=== PATIENT | male | born 1960 | race Caucasian/White ===

== ENCOUNTER → 2018-01-11 | Outpatient (CLI) | payer OTHER ==
[~2018-01-11] VITALS: Ht 177.8 cm; Wt 145.1 kg
[~2018-01-11] MED LIST: ACTOS 45 MG45 M1 PO; ADULT LOW DOSE81 MG PO; GLUCOVANCE 5-51 EACH PO; HUMALOG100 UNIT/1; HYDROCHLOROTHIA25 M1; LANTUS; LIPITOR40 MG PO; LISINOPRIL40 MG PO; OMEGA-31000 MG PO; THERA M PLUS T1 EAC2 PO; ZETIA10 MG PO
--- NOTE | ~2018-01-11 | EKG ---
[address] [address] ELECTROCARDIOGRAM REPORT Name: ROGER CLIFFORD Room #: REG [employer]#: [id number] Admission: 01/11/18 Attend Phys: Colin Lowry MD, Discharge: Date of : 56 Report #: [id number] THIS REPORT FOR: //name// [facility] Test Date: 2018-01-11 Test Time: 07:10:59 Pat Name: ROGER CLIFFORD Department: Room: Gender: M Director Retirement: Beatrice BRIDGES : 1960 Requested By: Colin Lowry Order Number: [id number] MD: Zaid Salazar Measurements Intervals [place] Rate: 76 P: 52 AK: 207 QRS: -19 QRSD: 98 T: 50 QT: 405 QTc: 456 Interpretive Statements Sinus rhythm Atrial premature complex Borderline prolonged AK interval Borderline left axis deviation Early R-wave progression Compared to ECG 07/28/2010 08:39:15 Atrial premature complex(es) now present Electronically Signed On 01-11-2018 8:17:44 CDT by Zaid Salazar [email or web address] <ELECTRONICALLY SIGNED> By: Zaid Salazar MD, [facility] 01/11/18 0817 0710 0710 Zaid Salazar MD, [facility] /EPI
--- NOTE | ~2018-01-11 | CATHLAB ---
[facility] [address] [place] [address] INVASIVE PROCEDURE REPORT Name: ROGER CLIFFORD Room #: REG Cyril#: [id number] Admission: 01/11/18 Attend Phys: Colin Lowry MD Discharge: Date of : 56 Date of Service: 01/11/18 1648 Report #: [id number] THIS REPORT FOR: //name// APPROVED REPORT Study performed: 01/11/2018 08:09:23 Patient Details Patient Status: Out-Patient Room #: The patient is a 57 year-old male Event Personnel Colin Lowry All Around Patternmaker, Eden Abbasi RTR, BOARD CERTIFIED MUSIC THERAPIST Monitor, Luis Turner RN, Colin Covarrubias Scrub Procedures Performed Left Heart Cath w/or w/o Coronaries [id number] [facility] Art Access - R radial artery Indication Positive stress test Risk Factors Hypertension, Diabetes Admission/Lab Medications/Medications given during procedure Heparin Unfract. Procedure Narrative The patient was brought electively to the Cardiac Catheterization Laboratory and was prepped and draped in a sterile manner. The Right Wrist^ was infiltrated with 1% Lidocaine subcutaneous anesthesia. A TRANSRADIAL SLENDER 6F GLIDESTrueViewTH KIT #[id number] sheath was inserted into the Right Radial Artery^. Coronary angiography was performed using coronary diagnostic catheters. The right coronary system was accessed and visualized with a JR4 catheter. The left coronary system was accessed and visualized with a JL3.5 catheter. The left ventricle was accessed and visualized with a PIGTAIL catheter. Left ventricular/Aortic Valve gradient assessed via catheter pullback. Left ventriculogram was performed in 30 degree projection. Closure device was deployed with a 6 Fr VASC BAND XL 29CM #[id number]. The patient tolerated the procedure well and there were no complications associated with the procedure. There was no hematoma. Intraoperative Conscious Sedation [facility] [address] [place] [address] INVASIVE PROCEDURE REPORT Name: ROGER CLIFFORD Room #: [facility] [id number] Admission: 01/11/18 Attend Phys: Colin Lowry MD Discharge: Date of : 56 Date of Service: 01/11/18 1648 Report #: [id number] Sedation start time: 8.24 Case end Time: 8.50 Fentanyl 25 mcg Versed 2 mg Fluoro Time: 6.40 minutes Dose: DAP 68491.00 cGycm2 1343 mGy Contrast Type and Amount: Omnipaque 145 ml Coronary Angiography The patient's coronary anatomy is right dominant. [place] Artery Percent Stenosis Left Main: 0 % Prox LAD: 0 % Mid/Distal LAD: 30 % Circumflex: 0 % RCA: 30 % Ramus: % Left Ventriculography The left ventricle is normal in size with normal contractility. The left ventricular ejection fraction is estimated to be 60-65%. Left ventricular wall motion abnormalities are not present. There is no mitral insufficiency. Hemodynamics The aortic pressure is 129/76 mmHg with a mean of 97 mmHg. The left ventricular pressure is 134/19 mmHg with a mean of mmHg. The left ventricular end diastolic pressure is 25 mmHg. There was no gradient across the aortic valve upon pullback. Pullback from the left ventricle to the aorta revealed no gradient across the aortic valve. Conclusion 1. minimal cad 2. suspect false positive cardiolite stress test Recommendations Aggressive Medical Therapy <ELECTRONICALLY SIGNED> By: Colin Lowry MD, FACC 01/11/18 1648 47 Colin Lowry MD, FACC /INF
[2018-01-11 07:04] LABS: HEMATOCRIT 42.4 % (42.0-52.0); HEMOGLOBIN 14.2 gm/dL (14.0-18.0); MCHC 33.4 g/dL (28.0-37.0); MCV 86.8 fL (80.0-100.0); RBC 4.89 mil/uL (4.50-6.00); RDW 14.2 % (10.5-14.5); WBC 8.8 thou/uL (4.0-11.0)
[2018-01-11 07:07] VITALS: BP 149/59
[2018-01-11 07:08] LABS: CALCIUM 9.5 mg/dL (8.5-10.1); POTASSIUM 4.3 mmol/L (3.5-5.1)
[2018-01-11 07:16] LABS: PROTIME 10.7 Seconds (9.3-11.4)
== END | disposition home or self-care (01) ==
LOC: CATH 06:31
PROVIDERS: Internal Medicine Cardiovascular Disease
DX: I25.10 Atherosclerotic heart disease of native coronary artery without angina pectoris (principal); I10 Essential (primary) hypertension; E11.9 Type 2 diabetes mellitus without complications; E78.00 Pure hypercholesterolemia, unspecified; E66.09 Other obesity due to excess calories; Z87.891 Personal history of nicotine dependence; Z90.49 Acquired absence of other specified parts of digestive tract; Z79.82 Long term (current) use of aspirin; Z79.4 Long term (current) use of insulin; Z79.899 Other long term (current) drug therapy

== ENCOUNTER → 2018-04-12 | Outpatient (CLI) | payer OTHER | LOC: PUL 08:52 | DX: G47.33 Obstructive sleep apnea (adult) (pediatric) (principal); J98.01 Acute bronchospasm; R06.09 Other forms of dyspnea; E66.01 Morbid (severe) obesity due to excess calories ==

== ENCOUNTER → 2021-09-09 | Outpatient (CLI) | payer OTHER | LOC: RAD 10:43 | PROVIDERS: ATTEND Internal Medicine Pulmonary Disease | DX: R06.02 Shortness of breath (principal); R06.00 Dyspnea, unspecified ==